=== PATIENT | female | born 1975 | race Caucasian/White ===

== ENCOUNTER 2020-03-21 10:34 | Emergency (ER) | payer OTHER ==
[~2020-03-21] VITALS: Ht 157.5 cm; Wt 110.0 kg
[~2020-03-21 10:34] MED LIST: APIX5TAB PO
[2020-03-21] MEDS ORDERED: IV NORMAL SALINE 1000ML BAG 1,000 ML IV ONE (11:00)
[2020-03-21] MEDS ORDERED: HYDROmorphone 2 MG/ML VIAL IVP ONE (11:00)
[2020-03-21 11:26] LABS: BASO # 0.1 x10^3/uL (0.0-0.2); BASO % 1 % (0-3); EOS # 0.1 x10^3/uL (0.0-0.7); EOS % 1 % (0-3); HEMATOCRIT 39.9 % (36.0-47.0); HEMOGLOBIN 13.8 g/dL (12.0-15.5); LYMPH # 2.5 x10^3/uL (1.0-4.8); LYMPH % 31 % (24-48); MEAN CORPUSCULAR HEMOGLOBIN 30 pg (25-35); MEAN CORPUSCULAR HGB CONC 35 g/dL (31-37); MEAN CORPUSCULAR VOLUME 87 fL (79-100); MONO # 0.5 x10^3/uL (0.0-1.1); MONO % 6 % (0-9); NEUT # 4.9 x10^3/uL (1.8-7.7); NEUT % 61 % (31-73); PLATELET COUNT 377 x10^3/uL (140-400); RED BLOOD COUNT 4.58 x10^6/uL (3.50-5.40); RED CELL DISTRIBUTION WIDTH 13.2 % (11.5-14.5)
[2020-03-21 11:36] LABS: PREG TEST PT QUAL NEGATIVE (NEG)
--- NOTE | 2020-03-21 11:39 | PHYS DOC ---
Past Medical History Past Medical History: Diabetes-Type II, Fibromyalgia, Other Additional Past Medical Histor: chronic back pain, Past Surgical History: Tonsillectomy, Other Additional Past Surgical Histo: hernia surgery,wisdom Smoking Status: Never Smoker Alcohol Use: Occasionally General Adult EDM: Chief Complaint: BACK PAIN - NO INJURY HPI: HPI: This is a pleasant 45-year-old female presenting to the emergency department today with low back pain. No recent trauma. She has a history of low back pain however her pain is different than typical. This is the third time she has been seen within the past week. She saw somebody in an ER at [facility] and then she went to her primary doctor and now she is here. She been taking muscle relaxants with minimal relief. The pain is a throbbing moderate pain in the low back which radiates down the left side. She reports urinary incontinence this morning and urinary paresthesias. She denies any weakness of her legs but does have pain with movement of her legs. Review of systems negative for chest pain shortness of breath vomiting abdominal pain fevers or chills. All other review of systems negative. ED course: 45-year-old female with acute lower lumbar back pain with urinary incontinence. On examination the patient has 5 out of 5 strength in her legs with 2+ deep tendon reflexes of the knees. Otherwise neurologic exam is unremarkable. She has some pain along the paraspinal musculature without tenderness midline. No step-offs or abrasions. Blood work and urinalysis unremarkable. MRI of the thoracic and lumbar spine are negative for acute compression. Will discharge to follow-up with PCP tomorrow. She is to return for any worsening or concerning symptoms. Heart Score: Risk Factors: Risk Factors: DM, Current or recent (<one month) smoker, HTN, HLP, family history of CAD, obesity. Risk Scores: Score 0 - 3: 2.5% MACE over next 6 weeks - Discharge Home Score 4 - 6: 20.3% MACE over next 6 weeks - Admit for Clinical Observation Score 7 - 10: 72.7% MACE over next 6 weeks - Early Invasive Strategies Current Medications: Current Medications Medications (Trade) Dose Ordered Sig/Jeff Start Time Stop Time Status Last Admin Dose Admin Hydromorphone HCl (Dilaudid) 0.5 mg 1X ONCE 03/21/20 11:00 03/21/20 11:01 DC 03/21/20 11:31 0.5 MG Sodium Chloride 1,000 ml @ 1,000 mls/hr 1X ONCE 03/21/20 11:00 03/21/20 11:59 03/21/20 11:32 1,000 MLS/HR Allergies: Allergies: Allergies Coded Allergies Type Severity Reaction Last Updated Verified metronidazole Allergy Severe 02/11/16 Yes ciprofloxacin Allergy Mild Swelling 02/11/16 Yes Penicillins Allergy Unknown 02/11/16 Yes Sulfa (Sulfonamide Antibiotics) Allergy Unknown 02/11/16 Yes codeine Allergy Unknown 02/11/16 Yes Physical Exam: PE: Constitutional: Well developed, well nourished, no acute distress, non-toxic appearance. [] HENT: Normocephalic, atraumatic, bilateral external ears normal, oropharynx efrain st, no oral exudates, nose normal. [] Eyes: PERRLA, EOMI, conjunctiva normal, no discharge. [] Neck: Normal range of motion, no tenderness, supple, no stridor. [] Cardiovascular:Heart rate regular rhythm, no murmur [] Lungs & Thorax: Bilateral breath sounds clear to auscultation [] Abdomen: Bowel sounds normal, soft, no tenderness, no masses, no pulsatile masses. [] Skin: Warm, dry, no erythema, no rash. [] Back: No tenderness, no CVA tenderness. [] Extremities: No tenderness, no cyanosis, no clubbing, ROM intact, no edema. [] Neurologic: Mental status: Awake oriented and alert x3 Cranial nerves: Extraocular movements intact, eyebrows cheryl bilaterally, smile symmetric, uvula elevation nl, shoulder shrug intact bilaterally, tongue protrusion normal DTRs: 2+ in the knees Sensation: equal and normal in all extremities Strength: 5/5 in upper and lower extremities bilaterally Psychologic: Affect normal, judgement normal, mood normal. [] Current Patient Data: Vital Signs: Vital Signs Date Time Temp Pulse Resp B/P (MAP) Pulse Ox O2 Delivery O2 Flow Rate FiO2 03/21/20 11:31 16 97 Room Air 03/21/20 10:38 98.4 77 156/84 (108) 98.4 EKG: EKG: [] Radiology/Procedures: Radiology/Procedures: [] Course & Med Decision Making: Course & Med Decision Making Pertinent Labs and Imaging studies reviewed. (See chart for details) [] Dragon Disclaimer: Dragon Disclaimer: This electronic medical record was generated, in whole or in part, using a voice recognition dictation system. Departure Departure Impression: Primary Impression: Low back pain Disposition: 01 DC HOME SELF CARE/HOMELESS Condition: STABLE Referrals: HINA HARE (PCP) Patient Instructions: Back Pain, Adult JOSE ROBERTO DHALIWAL MD Mar 21, 2020 11:39
[2020-03-21] MEDS ORDERED: LORazepam 0.5 MG TABLET PO ONE (11:45)
[2020-03-21 11:46] LABS: CREATININE 0.8 mg/dL (0.6-1.0); GFR 76.9; POTASSIUM 4.3 mmol/L (3.5-5.1)
[2020-03-21 11:49] LABS: ALBUMIN 3.8 g/dL (3.4-5.0); TOTAL BILIRUBIN 0.3 mg/dL (0.2-1.0); TOTAL PROTEIN 7.5 g/dL (6.4-8.2)
[2020-03-21 11:51] LABS: BILIRUBIN,URINE NEGATIVE (NEG); CLARITY,URINE CLEAR; COLOR,URINE YELLOW; NITRITE,URINE NEGATIVE (NEG); PROTEIN,URINE NEGATIVE (NEG-TRACE); UROBILINOGEN,URINE 0.2 mg/dL (0.2 mg/dL)
[2020-03-21 12:10] LABS: BACTERIA,URINE FEW /HPF (0-FEW); RBC,URINE 0 /HPF (0-2); WBC,URINE OCC /HPF (0-4)
--- NOTE | 2020-03-21 13:05 | RAD ---
Lumbar spine MRI without contrast 03/21/2020 HISTORY: Low back pain. COMPARISON: None Technique: Multiplanar multisequence MRI imaging of the lumbar spine was performed without contrast. FINDINGS: No evidence of acute fracture or alignment abnormality is identified. Vertebral body heights are maintained. There is disc space narrowing at the lumbosacral junction. Limited disc spaces are maintained. The spinal cord terminates at the L1 level. Normal distribution of nerve roots within thecal sac is noted. No acute paraspinal soft tissue changes are identified. At the level of L1-L2, there is no evidence of disc bulge, neural foraminal narrowing, facet arthrosis, ligamentum flavum thickening, or nerve root compression. At the level of L2-L3, there is no evidence of disc bulge, neural foraminal narrowing, facet arthrosis, ligamentum flavum thickening, or nerve root compression. At the level of L3-L4, there is no evidence of disc bulge, neural foraminal narrowing, facet arthrosis, ligamentum flavum thickening, or nerve root compression. At the level of L4-L5, there is a minimal broad-based disc bulge without significant stenosis, neural foraminal narrowing, facet arthrosis, or ligamentum flavum thickening, At the level of L5-S1, <there is mild degenerative disc space narrowing. There is a mild central and moderate left lateral disc bulge. No significant neural foraminal compromise or nerve impingement is identified. No significant stenosis is identified. IMPRESSION: Degenerative changes of lumbar spine as described, most prominent lumbosacral junction. Electronically signed by: Jason Ortega MD (03/21/2020 1:02 PM) [id number]
[2020-03-21] MEDS ORDERED: ONDANSETRON PF 4 MG/2 ML VIAL. IV ONE (13:45)
--- NOTE | 2020-03-21 14:20 | RAD ---
THORACIC SPINE WO CONTRAST INDICATION: low back pain TECHNIQUE: Multi-planar multi-weighted magnetic resonance imaging of the thoracic spine was performed without contrast using the standard protocol. COMPARISON: None. FINDINGS: The thoracic spine is normally aligned. No acute fracture. Vertebral body heights are maintained without compression deformity. Mild multilevel degenerative disc desiccation and disc height loss. Bone marrow signal intensity is normal. The spinal cord is normal in signal intensity. The conus medullaris terminates at a normal level. No soft tissue abnormality within the visualized chest or abdomen. The visualized thoracic aorta is normal caliber. No significant neuroforaminal narrowing or spinal canal stenosis. IMPRESSION: Mild thoracic spondylosis. No significant spinal canal stenosis or neural foraminal narrowing. Electronically signed by: Torsten Penn MD (03/21/2020 2:16 PM) [id number]
[2020-03-21 14:25] VITALS: BP 131/79
[2020-03-21] MEDS ORDERED: ONDA4TAB7 PO (14:57)
== END 2020-03-21 14:52 | disposition home or self-care (01) ==
LOC: ER 10:34
DX: M54.5 Low back pain (principal); R32 Unspecified urinary incontinence; M54.6 Pain in thoracic spine; M79.601 Pain in right arm; M79.602 Pain in left arm; G89.29 Other chronic pain; E11.9 Type 2 diabetes mellitus without complications; Z88.0 Allergy status to penicillin; Z88.1 Allergy status to other antibiotic agents; Z88.2 Allergy status to sulfonamides; Z88.5 Allergy status to narcotic agent; Z88.3 Allergy status to other anti-infective agents
CPT/HCPCS: 36415; 72146; 72148; 80053; 81001; 81025; 84703; 85025; 96361; 96374; 96375; 99285; J1170; J2405; J7030; 99284-25